=== PATIENT | male | born 1995 | race African-American/Black ===

== ENCOUNTER 2025-09-11 08:43 | Emergency (ER) | payer OTHER ==
[~2025-09-11] VITALS: Ht 193 cm; Wt 90.7 kg
[2025-09-11 08:56] VITALS: BP 128/77; TEMP 98.3; O2SAT 97
== END 2025-09-11 08:57 ==
LOC: ER 08:53
DX: Z02.89 Encounter for other administrative examinations (principal); Y09 Assault by unspecified means; Y93.89 Activity, other specified; Y92.89 Other specified places as the place of occurrence of the external cause; Y99.8 Other external cause status